=== PATIENT | female | born 1940 | race Caucasian/White ===

== ENCOUNTER 2024-04-17 14:57 | Outpatient (REF) | payer OTHER, SELFPAY ==
[2024-04-17 17:31] LABS: Vitamin B12 290 pg/mL (200-900)
== END 2024-04-17 14:58 | disposition home or self-care (01) ==
LOC: HO.LAB 14:57
PROVIDERS: Visit Provider Psychiatry & Neurology Neurology
DX: G30.9 Alzheimer's disease, unspecified (principal)
CPT/HCPCS: 36415; 82607

== ENCOUNTER 2024-12-24 13:53 | Outpatient (AMB) | payer OTHER, SELFPAY ==
--- NOTE | 2024-12-24 13:58 | MHC.OFFVIS ---
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 Her head CT revealed moderate atrophy mostly pronounced in temporal lobes. She is presenting for follow-up care related to Alzheimer's Disease. Her current sleep pattern indicates she sleeps most of the day and continues to sleep throughout the night, though waking and occasional agitation occur. Mood stability is described as satisfactory, and there have been no sightings of hallucinations. Donepezil is prescribed for symptom control and cognitive support. Clonazepam was recently given on a temporary basis for travel purposes. The patient requires kuzgi-scm-lrbby caregiving from her daughter and uses incontinence products as a part of daily management. Her condition is considered stable with the current medication and support structure in place. No new or progressive cognitive issues have been reported. Review of Systems Const Details: - Neurological: Reports occasional sleep disturbances; Denies hallucinations. - Psychological: Reports stable mood; Denies severe agitation. - Genitourinary: Reports diaper use for incontinence. Physical Exam Neuro Other: She is alert and awake mostly quite not anxious. Face is symmetrical. Visual lyons are full. No obvious focal arm or leg weakness. Assessment & Plan Assessment & Plan (1) Alzheimer dementia: Code(s): G30.9 - Alzheimer's disease, unspecified; F02.80 - Dementia in other diseases classified elsewhere, unspecified severity, without behavioral disturbance, psychotic disturbance, mood disturbance, and anxiety Category: Medical Plan Impression: Moderate dementia probably of Alzheimer type Recommendations: 1. Donepezil 10 mg daily 2. Sertraline 25 mg daily Medications: New donepezil 10 mg PO BEDTIME 90 tabs 1RF 90 days Refilled sertraline 25 mg PO DAILY 90 tabs 1RF Coding Level of Care Code Est Pt Level 4 (10179) Diagnoses Alzheimer dementia G30.9; F02.80
--- OUTSIDE RECORDS SUMMARY | 2024-12-24 16:16 | XMS_ITS | Encounter Summary ---
Author Organization [facility] Address [address] [place] [address] Care Team Providers Care Casting Room Operator Name Role Phone Macey Rivera BRIDGE MECHANIC Primary Care Provider [phone] Encounter Details Date Type Department Care Team ([facility] st Contact Info) Description 12/19/2024 Results Follow-Up [facility] Main [address] [place] [id number] Macey Rivera NP [address] [place] [address] Social History Tobacco Use Types Packs/Day Years Used Date Smoking Tobacco: Former Cigarettes Smokeless Tobacco: Never Comments:Stopped smoking abo ut 3 weeks ago Alcohol Use Standard Drinks/Week Comments Not Currently 0 (1 standard drink = 0.6 oz pur e alcohol) Social Connections Answer Date Recorded Connectedness 0 01/18/2024 Financial Resource Strain Answer Date R ecorded Financial Resource Strain 0 2023 Stress Answer Date Recorded Stress 0 01/18/2024 Physical Activity Answer Date Recorded Physical Activity 0 01/18/2024 Food Insecurity Answer Date Recorded Food 0 01/18/2024 Transportation Needs Answer Date Record ed Transportation 0 01/18/2024 Housing Stability Answer Date Recorded Housing 0 01/18/2024 Safety and Environment Answer Date Sachin rded Safety 0 01/18/2024 Utilities Answer Date Recorded Utilities 0 01/18/2024 Employment Answer Date Recorded Stress 0 01/18/2024 Comments No Sex and Gender Information Value Date Recorded Sex Assigned at Female 01/27/2024 10:10 AM PDT Legal Sex Female 6:24 AM PDT Gender Identity Female 01/27/2024 10:10 AM PDT Sexual Orientation Straight 01/27/2024 10 :10 AM PDT documented as of this encounter Plan of Treatment Upcoming Encounters Date Type Department Care Team (Late st Contact Info) Description 02/01/2025 3:00 PM EDT Office Visit [facility] Main [address] [place] [address] Macey Rivera NP [address] [place] [address] documented as of this encounter Visit Diagnoses Not on filedocumented in this encounter Additional Health Concerns Assessment Noted Time PHQ-9 Depression Total Score: 6 10/30/19 25 1:45 PM PDT A Depression follow-up plan has been documented for the patient 10/29/2024 4:05 PM PDT documented as of this encounter Care Teams Casting Room Operator Relationship Specialty Start Date End Date Macey Rivera NP [address] [place] [address] PCP - General Family Medicine, BRIDGE MECHANIC 02/22/24 documented as of this encounter
--- OUTSIDE RECORDS SUMMARY | 2024-12-24 16:16 | XMS_ITS | Clinical Summary ---
Author Organization [facility] Address [address] [place] [address] Care Team Providers Care Truck Driving Name Role Phone Macey Rivera RONNIE Primary Care Provider Source Comments PLEASE NOTE, if this patient is a minor, it may be UNLAWFUL to discuss sensitive information that is contained in these records (such as FAMILY PLANNING, MENTAL HEALTH or SUBSTANCE ABUSE) with the minor patient's parent or other person without the patient's specific authorization.[facility] Allergies No known active allergies Medications aspirin (ECOTRIN LOW STRENGTH) [address] tabletIndications :Coronary artery disease without angina pectoris, unspecified vessel or lesion type, unspecified whether campo or transplanted heart Take 1 Tablet by mouth once daily 90 Tablet 1 024 Active MISCELLANEOUS MEDICAL SUPPLY MISCIndications:M ild dementia, unspecified dementia type, unspecified whether behavioral, psychotic, or mood disturbance or anxiety ([facility]) by miscellaneous route daily Please dispense 1 grab bar for lifetime use for hx of dementia 1 Each 024 Active MISCELLANEOUS MEDICAL SUPPLY MISCIndications:M ild dementia, unspecified dementia type, unspecified whether behavioral, psychotic, or mood disturbance or anxiety ([facility]) by miscellaneous route daily Please dispense 1 shower chair for lifetime X99 years 1 Each 024 Active MISCELLANEOUS MEDICAL SUPPLY MISCIndications:M ild dementia, unspecified dementia type, unspecified whether behavioral, psychotic, or mood disturbance or anxiety ([facility]) by miscellaneous route once daily as needed (mixed incontinence & dementia) L adult pull ups for mixed incontinence, 8 per day for 30 days per month, use 99 years 240 Each 024 Active MISCELLANEOUS MEDICAL SUPPLY MISCIndications:M ild dementia, unspecified dementia type, unspecified whether behavioral, psychotic, or mood disturbance or anxiety ([facility]) by miscellaneous route daily. Please dispense 1 portable commode for lifetime use. Dx: dementia 1 Each 024 Active blood pressure monitorIndication s:Hypertension, unspecified type Dispense one automated BP monitor, to be used daily and prn, length of need 99 years 1 Kit 1 024 Active diclofenac sodium (VOLTAREN) 1 % gelIndications:Bi lateral low back pain without sciatica, unspecified chronicity Apply topically 2 (two) times daily 100 g 2 025 Active atorvastatin (LIPITOR) 40 mg tabletIndications :Hyperlipidemia, unspecified hyperlipidemia type TAKE 1 TABLET BY MOUTH EVERY NIGHT AT BEDTIME 90 Tablet 1 025 Active donepeziL (ARICEPT) 10 mg tabletIndications :Mild dementia, unspecified dementia type, unspecified whether behavioral, psychotic, or mood disturbance or anxiety ([facility]) TAKE 1 TABLET BY MOUTH EVERY NIGHT AT BEDTIME 90 Tablet 1 025 Active irbesartan (AVAPRO) 300 mg tabletIndications :Hypertension, unspecified type TAKE 1 TABLET BY MOUTH DAILY 90 Tablet 1 025 Active empagliflozin (JARDIANCE) 10 mg tab Take 10 mg by mouth once daily. Active sertraline (ZOLOFT) 25 mg tabletIndications :Mild dementia with agitation, unspecified dementia type ([facility]) Take 1 Tablet by mouth once daily. 30 Tablet 2 025 Active MISCELLANEOUS MEDICAL SUPPLY MISCIndications:U nsteady gait,Mild episode of recurrent major depressive disorder ([facility] V24) by miscellaneous route daily Please dispense 1 wheelchair with a seat for lifetime use, dx: gait instability. 1 Each 025 Active famotidine (PEPCID) 20 mg tablet Take 1 Tablet by mouth daily. 90 Tablet 1 025 Active alendronate (FOSAMAX) 70 mg tabletIndications :Age-related osteoporosis without current pathological fracture TAKE 1 TABLET BY MOUTH EVERY 7 DAYS 12 Tablet 3 025 Active famotidine (PEPCID) 20 mg tablet Take 1 Tablet by mouth daily. 90 Tablet 1 024 2024 Discontinued(R eorder (E-Cancel Not Sent)) alendronate (FOSAMAX) 70 mg tabletIndications :Age-related osteoporosis without current pathological fracture TAKE 1 TABLET BY MOUTH EVERY 7 DAYS 12 Tablet 3 025 2024 Discontinued Active Problems Problem Noted Date Diagnosed Date Mild episode of recurrent ma zarina depressive disorder [place] [place] 10/29/2024 Stage 3b chronic kidney disease ([facility]) 01/31/2024 Overview (10/29/2024): 10/13/24 [facility] Tristen Nye MD Plan - continue irbesartan for proteinuria - Cont Jardiance 10 mg QD - Avoid the use of Motrin, Aleve, or ibuprofen to prevent further kidney damage. - Increase fluid intake, including water and cranberry juice - Monitor blood pressure at home using a blood pressure machine. Record readings in a diary and bring them to the next visit for review. Changes to blood pressure medication will be made once consistent readings are available. -Consider referral to Endocrine for 24 hr urine calcium and DEXA scan, not a candidate for surgery, will likely benefit from sensipar as she has CKD. PHPT can contribute to progressive kidney function through direct effects on the kidney and hypercalemia induced nephrocalcinosis and nephrolithiasis. Return in 3 months 07/12/24: [facility] Tristen Nye MD Assessment & Plan 1. Stage 3b chronic kidney disease (HCC) 2. Persistent proteinuria 3. Primary hyperparathyroidism (HCC) - CKD Stage 3a/b, stable Scr 1.2, GFR 45 as of 07/04/24, with normal lytes - K borderline high at 5.1, Bicarb WNL 23 - Kidneys with increased echogenecity noted on prior ultrasound, consistent with CKD. 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 - Unclear etiology of reported gel-like substance in urine; further confirmation required. - Hypertension with elevated systolic readings, requiring monitoring. - Early-stage dementia. - Ca improved to WNL 9.6 from 10.4 with elevated PTH of 129 - likely primary hyperparathyroidism, normal VitD 25 level. Plan - continue irbesartan for proteinuria - Avoid the use of Motrin, Aleve, or ibuprofen to prevent further kidney damage. - Maintain proper perineal hygiene to reduce the risk of urinary infections. Assistance may be needed to ensure thorough cleaning after bowel or urinary movements. - Increase fluid intake, including water and cranberry juice, to support urinary health. - Monitor blood pressure at home using a blood pressure machine. Record readings in a diary and bring them to the next visit for review. No changes to blood pressure medication will be made until consistent readings are available. - If the gel-like substance in the urine is confirmed as originating from the urinary tract, consider a referral to a urologist to evaluate for potential bladder blockage or other issues. -Consider referral to Endocrine if hypercalcemia/pth worsens -Start Jardiance 10 mg QD -Repeat Renal panel, UPCR/UACR and UA, UC to screen for UTI in 4 weeks Orders Placed This Encounter Urinalysis with microscopic Urine Albumin / Creatinine Ratio Urine Protein / creatinine ratio Renal function panel Urine culture Jardiance 10 MG tablet Return in about 3 months (around 10/12/2024) for Next scheduled follow-up with Dr. Peter. RE: 04/13/24 [facility] Tristen Nye MD : f/u in 3 months Assessment & Plan 1. Stage 3b chronic kidney disease (HCC) - Chronic kidney disease (CKD) stage 3B, BL cr 1.05 with an eGFR of 53,- labs today. consistent with prior findings from - Kidneys with increased echogenecity noted on prior ultrasound, consistent with CKD. - CKD likley secondary to ischemic renal dz, nsaid use, residual loss of renal fucntion - has proteinuria of 1gm with macr 500mg. Ua bland no rbc, no h/o dm - No evidence of anemia - No current evidence of urinary tract infection or fever. - Unclear etiology of reported gel-like substance in urine; further confirmation required. - Hypertension with elevated systolic readings, requiring monitoring. - Early-stage dementia. - Calcium 10.4 with pth 100 consistent with primary hyperparathyroidism Plan - continue irbesartan for proteinuria - will consider sglt2i once ascertain uti risk - Avoid the use of Motrin, Aleve, or ibuprofen to prevent further kidney damage. - Maintain proper perineal hygiene to reduce the risk of urinary infections. Assistance may be needed to ensure thorough cleaning after bowel or urinary movements. - Increase fluid intake, including water and cranberry juice, to support urinary health. - Monitor blood pressure at home using a blood pressure machine. Record readings in a diary and bring them to the next visit for review. No changes to blood pressure medication will be made until consistent readings are available. - If the gel-like substance in the urine is confirmed as originating from the urinary tract, consider a referral to a urologist to evaluate for potential bladder blockage or other issues. - she is not symptomatic from the hypercalcemia, if it worsens, will consider referral to endocrine surgery 02/22/24: KUB: Increased echogenicity of the renal cortices consistent with intrinsic renal disease. No hydronephrosis bilaterally. No bladder masses or stones are identified. Hyperlipidemia 01/27/2024 Coronary artery disease without angina pectoris 01/27/2024 Overview (03/27/2024): 03/23/24:[facility] Kory Guzmán: Continue Asprin & atorvastin daily. Will check ECHO and follow up in 6 months 2013: underwent 2 vessel bypass Age-related osteoporosis wit hout current pathological fracture 01/27/2024 Overview (01/27/2024): Bone scan 09/27/23- L femoral neck, L total forearm, 1/3 forearm (L) with osteoporosis AP spine, UD forearm left with osteopenia. Hypertension 01/27/2024 Moderate dementia (CMS & HHS-HCC) 01/27/2024 Overview (04/24/2024): 04/17/24: [facility] with Filipe Smith MD: Plan continue donsepril 10mg at HS, start sertraline 25mg daily, get labs B12 & MRI. Follow up after MRI Type 2 diabetes mellitus wit h other specified complication ([facility]) 01/27/2024 GERD (gastroesophageal reflux disease) Encounters Date Type Department Care Team Description 12/19/2024 Results Follow-Up [address] [phone] Macey Rivera NP 12/11/2024 10:20 AM EDT Office Visit [address] [phone] Macey Rivera NP 10/29/2024 2:00 PM EDT Office Visit [address] [phone] Macey Rivera NP Zayas, Juan from Last 3 Months Immunizations Immunization Administration Dates Next Due Influenza (FLUZONE), high-dose, trivalent, PF PNEUMOCOCCAL CONJUGATE PCV 20 (Prevnar 20) 05/30 Pfizer COVID-19 (Comirnaty), Mrna, Lnp-s, Pf, Candelario-sucrose, 30 Mcg/0.3 Ml, 12yr+ 01/27/2024 TDAP 10/29/2024 ZOSTER VACCINE, RECOMBINANT (SHINGRIX) ,05/30/2024 Family History Medical History Relation Name Comments Diabetes Daughter 1 Hypertension Daughter 1 Coronary Artery Disease Daughter 2 Diabetes Daughter 2 Hypertension Daughter 2 Stroke Father Stroke Mother Kidney disease Son 1 Relation Name Status Comments Daughter 1 Daughter 2 Alive Father Maternal Grandmother Mother Son 1 Alive Son 2 Alive Son 3 Alive Son 4 Alive Son 5 Alive Son 6 Alive Social History Tobacco Use Types Packs/Day Years Used Date Smoking Tobacco: Former Cigarettes Smokeless Tobacco: Never Tobacco Cessation:Counseling Given: Not Answered Comments:Stopped smoking about 3 weeks ago Alcohol Use Standard Drinks/Week [...] Orientation Straight 01/27/2024 10 :10 AM PDT Last Filed Vital Signs Vital Sign Reading Time Taken Comments Blood Pressure 140/60 12/11/2024 10:15 AM EDT Pulse 65 12/11/2024 10:15 AM EDT Temperature 36.6 C (97.9 F) 12/11/2024 10:15 AM EDT Respiratory Rate 16 12/11/2024 10:15 AM EDT Oxygen Saturation 99% 12/11/2024 10:15 AM EDT Inhaled Oxygen Concentration - - Weight 53.1 kg (117 lb) 12/11/2024 10:15 AM EDT Height 152.4 cm (5') 12/11/2024 10:15 AM EDT Body Mass Index 22.85 12/11/2024 10:15 AM EDT Plan of Treatment Upcoming Encounters Date Type Department Care Team (Late st Contact Info) Description 02/01/2025 3:00 PM EDT Office Visit [facility] [address] [place] [phone] Macey Rivera NP [address] [place] [address] Health Maintenance Due Date Last Done Comments Dental Examination 1940 Diabetes Foot Exam 1940 Advanced Care Planning 1940 Retinopathy Screening 1953 Medicare Annual Wellness Visit 1958 Imm-RSV (adult) (1 - 1-dose 75+ series) 2015 [id number]-[id number]-12 (2 season) 2024 024 Imm-Influenza (#1) 2024 01/27/2024 Lipid Screening 01/26/2025 01/27/2024 Depression Monitoring 01/29/2025 10/29/2024, 025 Falls Prevention 05/30/2025 05/30/2024 Hemoglobin A1c 06/13/2025 12/11/2024, 03/12/2024, 07/04/2024, Additional history exists Serum Creatinine 08/06/2025 08/06/2024, , 04/13/2024, Additional history exists Tobacco Screening 12/11/2025 12/11/2024 Urine Albumin Creatinine Rat io Screening 12/11/2025 12/11/2024, 10/23/2024, 08/06/2024, Additional history exists Imm-DTaP/Tdap/Td (2 - Td or Tdap) 10/29/2034 025 Bone Density Screening Completed 09/27/2023 Alcohol and Drug Screen Completed 05/30/2024, 01/26 Imm-Pneumococcal 50+ Completed 05/30/2024 Imm-Zoster, Recombinant Completed 12/11/2024, 05/30 Procedures Procedure Name Priority Date/Time Associated Diagnosis Comments OTHER ORDERS SCANNED DOCUMENT 12/14/2024 3:00 AM EDT PTH, INTACT AND CALCIUM Routine 12/11/2024 11:55 AM EDT MICROALBUMIN/CREATININ E RATIO, URINE, RANDOM Routine 12/11/2024 11:55 AM EDT Type 2 diabetes mellitus with other specified complication, without long-term current use of insulin ([facility]) HEMOGLOBIN GLYCOSYLATED A1C Routine 12/11/2024 11:55 AM EDT Type 2 diabetes mellitus with other specified complication, without long-term current use of insulin ([facility]) OTHER ORDERS SCANNED DOCUMENT 12/04/2024 3:00 AM EDT REFERRAL SCANNED DOCUMENT 11/23/2024 3:00 AM EDT OTHER ORDERS SCANNED DOCUMENT 11/14/2024 3:00 AM EDT OTHER ORDERS SCANNED DOCUMENT 10/31/2024 3:00 AM EDT OTHER ORDERS SCANNED DOCUMENT 10/30/2024 3:00 AM EDT OTHER ORDERS SCANNED DOCUMENT 10/03/2024 3:00 AM EDT IMAGING SCANNED DOCUMENT 09/27/2024 3:00 AM EDT COMPREHENSIVE METABOLIC PANEL Routine 01/27/2024 2:34 PM EDT Routine adult health maintenance LIPID PANEL Routine 01/27/2024 2:34 PM EDT Routine adult health maintenance HISTORIC DEXA SCAN 09/27/2023 3: 00 AM EDT from Last 3 Months or Most Recently Relevant to Health Maintenance Results * OTHER ORDERS SCANNED DOCUMENT (12/14/2024 3:00 AM EDT) Only the most recent of6 resultswithin the time period is included. 12/14/2024 3:00 AM EDT Davisdarby Miguel STABLE HELPER SCAN OTHER ORDERS Final Result * (ABNORMAL) MICROALBUMIN/CREATININE RATIO, URINE, RANDOM Urine Routine (12/11/2024 11:55 AM EDT) CREATININE, RANDOM URINE 68 20 - 275 mg/dL 12/13/2024 8:52 PM EDT [facility] MICROALBUMIN 60.4 mg/dL 12/13/2024 8:52 PM EDT [facility] MICROALBUMIN/CRE ATININE RATIO, RANDOM URINE 888(H) <30 mg/g creat 12/13/2024 8:52 PM EDT [facility] Urine Urine specimen / Unknown 12/11/2024 11:55 AM EDT 12/12/2024 8:36 AM EDT Narrative [facility] - 12/13/2024 8:54 PM EDT FASTING:UNKNOWN Verified by repeat analysis. . Reference Range Not established . The ADA defines abnormalities in albumin excretion as follows: . Albuminuria Category Result (mg/g creatinine) . Normal to Mildly increased <30 Moderately increased 30-299 Severely increased > OR = 300 . The ADA recommends that at least two of three specimens collected within a 3-6 month period be abnormal before considering a patient to be within a diagnostic category. us Macey Rivera STABLE HELPER LAB URINE AMBULATORY Final Resu lt Performing Organization Address [facility]/ZIP Co de Phone Number [facility] [address] [address], [employer] [address] [phone] * (ABNORMAL) PTH, INTACT AND CALCIUM Routine (12/11/2024 11:55 AM EDT) PARATHYROID HORMONE, INTACT 173(H) 16 - 77 pg/mL 12/12/2024 6:58 AM EDT [facility] CALCIUM 9.9 8.6 - 10.4 mg/dL 12/12/2024 9:02 AM EDT [employer] 12/11/2024 11:5 5 AM EDT 12/12/2024 4:07 AM EDT Narrative [facility] - 12/12/2024 9:10 AM EDT FASTING:UNKNOWN . Interpretive Guide Intact PTH Calcium ------- Normal Parathyroid Normal Normal Hypoparathyroidism Low or Low Normal Low Hyperparathyroidism Primary Normal or High High Secondary High Normal or Low Tertiary High High Non-Parathyroid Hypercalcemia Low or Low Normal High . us Macey Rivera STABLE HELPER LAB - BLOOD DRAW Final Result Performing Organization Address City/[facility]/ZIP Co de Phone Number [facility] [address] [address], [employer] [address] [address] * HEMOGLOBIN GLYCOSYLATED A1C Routine (12/11/2024 11:55 AM EDT) HEMOGLOBIN A1C 5.2 <5.7 % 12/12/2024 7:21 AM EDT [employer] Blood Blood / Unknown 12/11/2024 1 1:55 AM EDT 12/12/2024 4:30 AM EDT Narrative [facility] - 12/12/2024 7:29 AM EDT FASTING:UNKNOWN For the purpose of screening for the presence of diabetes: . <5.7% Consistent with the absence of diabetes 5.7-6.4% Consistent with increased risk for diabetes (prediabetes) > or =6.5% Consistent with diabetes . This assay result is consistent with a decreased risk of diabetes. . Currently, no consensus exists regarding use of hemoglobin A1c for diagnosis of diabetes in children. . According to [place] Diabetes Association (ADA) guidelines, hemoglobin A1c <7.0% represents optimal control in non- diabetic patients. Different metrics may apply to specific patient populations. Standards of Medical Care in Diabetes(ADA). . Macey Rivera NP LAB - BLOOD DRAW Final Result [facility] [address] [address], [facility] [address] [phone] * REFERRAL SCANNED DOCUMENT (11/23/2024 3:00 AM EDT) 11/23/2024 3:00 AM EDT Ashley Brooks PA-C SCAN REFERRAL Final Result * IMAGING SCANNED DOCUMENT (09/27/2024 3:00 AM EDT) 09/27/2024 3:00 AM EDT Melissa DYERP SCAN IMAGING Final Res ult * LIPID PANEL (01/27/2024 2:34 PM EDT) CHOLESTEROL, TOTAL 113 <200 mg/dL [facility] HDL CHOLESTEROL 51 > OR = 50 mg/dL [facility] TRIGLYCERIDES 84 <150 mg/dL [facility] LDL-CHOLESTEROL 46 99 mg/dL (calc) [facility] Comment: Reference range: <100 Desirable range <100 mg/dL for primary prevention; <70 mg/dL for patients with CHD or diabetic patients with > or = 2 CHD risk factors. LDL-C is now calculated using the Yvonne calculation, which is a validated novel method providing better accuracy than the Friedewald equation in the estimation of LDL-C. Raheem CASTANEDA et al. VALENCIA. 2013;310(19): 8129-9977 (http://education.[employer]/faq/NII420) CHOL/HDLC RATIO 2.2 <5.0 (calc) [facility] NON-HDL CHOLESTEROL 62 <130 mg/dL (calc) [facility] Comment: For patients with diabetes plus 1 major ASCVD risk factor, treating to a non-HDL-C goal of <100 mg/dL (LDL-C of <70 mg/dL) is considered a therapeutic option. Blood Blood / Unknown 01/27/2024 2 :34 PM EDT 01/27/2024 2:35 PM EDT Macey Rivera NP LAB - BLOOD DRAW Final Result [facility] [address] [place] [id number], [facility] [address] [phone] * (ABNORMAL) COMPREHENSIVE METABOLIC PANEL (01/27/2024 2:34 PM EDT) GLUCOSE 139(H) 65 - 99 mg/dL [facility] Comment: Fasting reference interval For someone without known diabetes, a glucose value >125 mg/dL indicates that they may have diabetes and this should be confirmed with a follow-up test. UREA NITROGEN (BUN) 35(H) 7 - 25 mg/dL [facility] CREATININE (blood) 1.22(H) 0.60 - 0.95 mg/dL [employer] EGFR 44(L) > OR = 60 mL/min/1. 73m2 [facility] BUN/CREATININE RATIO 29(H) 6 - 22 (calc) [facility] SODIUM 140 135 - 146 mmol/L [facility] POTASSIUM 4.1 3.5 - 5.3 mmol/L [facility] CHLORIDE 103 98 - 110 mmol/L [facility] CARBON DIOXIDE 27 20 - 32 mmol/L [employer] [facility] CALCIUM 9.5 8.6 - 10.4 mg/dL [facility] PROTEIN, TOTAL 6.5 6.1 - 8.1 g/dL [facility] ALBUMIN 3.9 3.6 - 5.1 g/dL [facility] [place] [facility] GLOBULIN 2.6 1.9 - 3.7 g/dL (calc) [facility] ALBUMIN/GLOBULI N RATIO 1.5 1.0 - 2.5 (calc) [facility] BILIRUBIN, TOTAL 0.5 0.2 - 1.2 mg/dL [facility] ALKALINE PHOSPHATASE 77 37 - 153 U/L [facility] AST 20 10 - 35 U/L [facility] ALT 19 6 - 29 U/L [facility] Blood Blood / Unknown 01/27/2024 2 :34 PM EDT 01/27/2024 2:35 PM EDT Macey Rivera NP LAB - BLOOD DRAW Edited Result - Final [facility] [address] [address], [facility] [address] [address] * HISTORIC DEXA SCAN (09/27/2023 3:00 AM EDT) 09/27/2023 3:00 AM EDT Melissa Fajardo [employer] IMG DXA Final Res ult from Last 3 Months or Most Recently Relevant to Health Maintenance Insurance [facility] [place] [id number] Care Teams Truck Driving Relationship Specialty Start Date End Date Macey Rivera NP [address] [place] [address] PCP - General Family Medicine, RONNIE 02/22/24
--- OUTSIDE RECORDS SUMMARY | 2024-12-24 16:16 | XMS_ITS | Clinical Summary ---
Author Organization [facility] Address [address] [facility] [address] [place] [phone] Phone Care Team Providers Care Patient Registration Specialist Name Role Phone Pcp, Unknown Primary Care Provider Unavailabl e Social History Tobacco Use Types Packs/Day Years Used Date Smoking Tobacco: Never Assessed Education Answer Date Recorded Are you interested in more education? Not on nubia e 03/22/2024 Are you concerned about learning? Not on file 03/22/2024 No 03/22/2024 No 03/22/2024 Digital Access Answer Date Recorded No 03/22/2024 No 03/22/2024 Reliable internet access at home? Not on file 03/22/2024 Device with a working camera? Not on file Comments Unknown Sex and Gender Information Value Date Recorded Sex Assigned at Not on file Legal Sex Female 3:24 PM EST Gender Identity Not on file Sexual Orientation Not on file Plan of Treatment Upcoming Encounters Date Type Department Care Team (Late st Contact Info) Description 01/04/2025 1:30 PM EDT Office Visit [facility] [address] [place] [address] [place] [address] Daniel Díaz DO [address] [facility], [address] [place] [address] [email or web address] Yomaira Hunter [address] [place] [address] [email or web address] Health Maintenance Due Date Last Done Comments Adult Td,Tdap Booster 1940 DEPRESSION SCREENING 1952 PNEUMOCOCCAL VACCINES (50+ y ears) (1 of 1 - PCV) 1990 ZOSTER VACCINES (1 of 2) 1990 OSTEOPOROSIS SCREENING INITI AL (ONE-TIME) 2005 RSV VACCINE (1 - 1-dose 75+ series) 2015 INFLUENZA VACCINE (#1) 2024 COVID-19 VACCINE (1 - 2023-2 5 season) 2024 HEPATITIS A VACCINES Aged Out No long er eligible based on patient's age to complete this topic HIB VACCINES Aged Out No longer eligi ble based on patient's age to complete this topic MENINGOCOCCAL VACCINES (ACWY) Aged Out No longer eligible based on patient's age to complete this topic MENINGOCOCCAL VACCINES (B) Aged Out N o longer eligible based on patient's age to complete this topic Medical Devices Not on file Insurance [facility] MEDICARE PART A & B [facility] MEDIC[facility] REPLACEMENT [facility] B [facility] MEDIC[facility]PLACEMENT [facility] B [facility] MEDICARE REPLACEMENT [facility] MEDICARE PART A & [facility] RE[facility] MEDIC[facility] PART A & B [facility] MEDICARE REPLACEMENT [facility] MEDICARE PART A & B Member Subscriber Plan / Payer (Ef fective 1993-Present) Name:Alycia Qureshi Member ID:[id number] Relation to Subscriber:Self Name:Alycia Qureshi Subscriber ID:[id number] Payer ID:[id number] Group ID:Not on file Type:Medicare Address: [facility] [employer] [facility] [facility] [address] [facility] [place] [address] [facility] SCO MEDICARE REPLACEMENT Care Teams Patient Registration Specialist Relationship Specialty Start Date End Date Pcp, Unknown PCP - General 03/22/24 Additional Source Comments The information contained in this document represents components of the legal health record. It is not the complete legal health record.[facility]
--- OUTSIDE RECORDS SUMMARY | 2024-12-24 16:16 | XMS_ITS | Clinical Summary ---
Author Organization [facility] Address [address] [place] [phone] Phone Care Team Providers Care Recruiting Administrator Name Role Phone Melissa Malin NP Primary Care Provider Yaneth vailable Allergies No known active allergies Medications alendronate (FOSAMAX) 70 MG tablet take 1 tablet by mouth every 7 days Active aspirin (ST RENATO) 81 MG EC tablet Take 81 mg by mouth in the morning. 01/27/2024 Active atorvastatin (LIPITOR) 40 MG tablet Take 1 tablet by mouth every night 01/27/2024 Active donepezil (ARICEPT) 10 MG tablet Take 1 tablet by mouth every night 01/27/2024 Active famotidine (PEPCID) 20 MG tablet Take 20 mg by mouth in the morning. 01/27/2024 Active irbesartan (AVAPRO) 300 MG tablet Take 300 mg by mouth in the morning. 01/27/2024 Active Jardiance 10 MG tabletIndication s:Stage 3b chronic kidney disease (HCC),Persistent proteinuria Take 10 mg by mouth 1 (one) time each day in the morning 30 tablet 11 07/12/2024 07/13/19 26 Active Active Problems Problem Noted Date Diagnosed Date Secondary hyperparathyroidism of renal origin Primary hyperparathyroidism 07/13/2024 Persistent proteinuria 07/12/2024 Gastroesophageal reflux disease 04/13/2024 Stage 3b chronic kidney disease 01/31/2024 Overview (04/13/2024): 02/22/24: [facility]: Increased echogenicity of the renal cortices consistent with intrinsic renal disease. No hydronephrosis bilaterally. No bladder masses or stones are identified. Coronary arteriosclerosis 01/27/2024 Overview (04/13/2024): 03/23/24:[facility] Kory Guzmán: Continue Asprin & atorvastin daily. 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 Encounters Date Type Department Care Team Description 10/12/2024 11:45 AM EDT Office Visit [facility] [address] [phone] Tristen Nye MD Stage 3b chronic kidney disease (HCC) (Primary Dx); Persistent proteinuria; Primary hyperparathyroidism (HCC) from Last 3 Months Immunizations Immunization Administration Dates Next Due Influenza Split High Dose Preservative Free IM 1 Social History Tobacco Use Types Packs/Day Years Used Date Smoking Tobacco: Never Assessed Comments Unknown Sex and Gender Information Value Date Recorded Sex Assigned at Not on file Legal Sex Female 8:56 AM EDT Gender Identity Not on file Sexual Orientation Not on file Last Filed Vital Signs Vital Sign Reading Time Taken Comments Blood Pressure 162/60 10/12/2024 11:56 AM EDT Pulse 84 07/12/2024 11:11 AM EDT Temperature - - Respiratory Rate - - Oxygen Saturation 98% 07/12/2024 11:11 AM EDT Inhaled Oxygen Concentration - - Weight 53.5 kg (118 lb) 10/12/2024 11:56 AM EDT Height - - Body Mass Index - - Plan of Treatment Upcoming Encounters Date Type Department Care Team (Latest Contact Info) Description 01/12/2025 Orders Only [facility] [address] [phone] Tristen Nye MD [address] [phone] Stage 3b chronic kidney disease (HCC); Persistent proteinuria; Primary hyperparathyroidism (HCC) 01/21/2025 11:15 AM EDT Office Visit [facility] [address] [phone] Tristen Nye MD [address] [phone] Health Maintenance Due Date Last Done Comments Pneumococcal Vaccine: 50+ Years (1 of 2 - PCV) 1959 Diabetes: Ophthalmology Exam 02/14/2024 Diabetes: Pedal Pulse Checked 02/14/2024 Diabetes: Sensory Foot Exam 02/14/2024 Diabetes: Visual Foot Exam 02/14/2024 Influenza Vaccine (#1) 2024 01/27/2024 Diabetes: Hemoglobin A1C 03/13/2025 025, 07/04/2024, 01/27/2024 Hepatitis B Vaccine Aged Out No longe r eligible based on patient's age to complete this topic Procedures Procedure Name Priority Date/Time Associated Diagnosis Comments URINE ALBUMIN / CREATININE RATIO Routine 10/23/2024 9:10 AM EDT Stage 3b chronic kidney disease (HCC) Persistent proteinuria Primary hyperparathyroidism (HCC) PROTEIN / CREATININE RATIO, URINE Routine 10/23/2024 9:10 AM EDT Stage 3b chronic kidney disease (HCC) Persistent proteinuria Primary hyperparathyroidism (HCC) URINALYSIS WITH MICROSCOPIC Routine 10/23/2024 9:10 AM EDT Stage 3b chronic kidney disease (HCC) Persistent proteinuria Primary hyperparathyroidism (HCC) MICROSCOPIC EXAMINATION - DO NOT USE Routine 10/23/2024 9:10 AM EDT HEMOGLOBIN A1C Routine 07/04/2024 10:44 AM EDT from Last 3 Months or Most Recently Relevant to Health Maintenance Results * (ABNORMAL) Microscopic Examination (10/23/2024 9:10 AM EDT) WBC, Urine >30(A) 0 - 5 /hpf [facility] RBC, Urine 3-10(A) 0 - 2 /hpf [facility] Squamous Epithelial, Urine None seen 0 - 10 /hpf [facility] Casts None seen None seen /lpf [facility] Bacteria, Urine Many(A) None seen/Few [facility] 10/23/2024 9:10 AM EDT 10/23/2024 Tristen Nye MD LAB MICROBIOLOGY - GE NERAL ORDERABLES Final Result Performing Organization Address City/[facility] Co de Phone Number [facility] [address] [place] [address] * (ABNORMAL) Protein, Total, Random Urine w/Creatinine (Protein/Creat Ratio) (10/23/2024 9:10 AM EDT) Creatinine, Ur 42.7 Not Estab. mg/dL [facility] Protein, Ur 82.4 Not Estab. mg/dL [facility] Urine Protein/Creati nine Ratio 1,930(H) 0 - 200 mg/g creat [facility] Urine Urine specimen obtained by clean catch procedure / Unknown 10/23/2024 9:10 AM EDT 10/23/2024 Tristen Nye MD LAB URINE ORDERABLES Final Result Performing Organization Address City/[facility]/ZIP Co de Phone Number [facility] [address] [place] [phone] * (ABNORMAL) Urine Albumin / Creatinine Ratio (10/23/2024 9:10 AM EDT) Albumin, Urine 453.1 Not Estab. ug/mL [facility] Comment: Results confirmed on dilution. Albumin/Creatin ine Ratio 1,061(H) 0 - 29 mg/g creat [facility] Comment: Normal: 0 - 29 Moderately increased: 30 - 300 Severely increased: >300 Urine Urine specimen obtained by clean catch procedure / Unknown 10/23/2024 9:10 AM EDT 10/23/2024 us Tristen Nye MD LAB URINE ORDERABLES Final Result [facility] [address] [place] [phone] * (ABNORMAL) Urinalysis with microscopic (10/23/2024 9:10 AM EDT) Specific [place], Urine 1.015 1.005 - 1.030 [facility] [phone] pH Urine 6.0 5.0 - 7.5 [facility] Color, Urine Yellow Yellow [facility] Appearance Urine Cloudy(A) Clear [facility] [phone] WBC Esterase Urine 2+(A) Negative [facility] Protein, Ur 2+(A) Negative/Tra ce [facility] [phone] Glucose, Ur 3+(A) Negative [facility] Ketones, Urine Negative Negative [facility] Blood Urine 3+(A) Negative [facility] [phone] Bilirubin Urine Negative Negative [facility] Urobilinogen Urine 0.2 0.2 - 1.0 mg/dL [facility] Nitrite, Urine Negative Negative [facility] Microscopic Examination See below: [facility] Comment:Microscopic was marty cated and was performed. Urine Urine specimen obtained by clean catch procedure / Unknown 10/23/2024 9:10 AM EDT 10/23/2024 Tristen Nye MD LAB URINE ORDERABLES Final Result [facility] [address] [place] [phone] * Hemoglobin A1c (07/04/2024 10:44 AM EDT) Hemoglobin A1C 5.5 4.8 - 5.6 % [facility] Comment: Prediabetes: 5.7 - 6.4 Diabetes: >6.4 Glycemic control for adults with diabetes: <7.0 07/04/2024 10:4 4 AM EDT 07/04/2024 Tristen Nye MD LAB BLOOD ORDERABLES Final Result Performing Organization Address City/[facility]/ZIP Co de Phone Number [facility] [address] [place] [phone] from Last 3 Months or Most Recently Relevant to Health Maintenance Insurance [employer] [id number] Care Teams Recruiting Administrator Relationship Specialty Start Date End Date Melissa Malin NP [facility] [place] [phone] PCP - General Nurse Practitioner 02/13/24
== END 2024-12-24 14:47 | disposition home or self-care (01) ==
LOC: HO.HSM 13:54
PROVIDERS: Referring Provider Internal Medicine; Visit Provider Psychiatry & Neurology Neurology
DX: G30.9 Alzheimer's disease, unspecified (principal); F02.80 Dementia in other diseases classified elsewhere, unspecified severity, without behavioral disturbance, psychotic disturbance, mood disturbance, and anxiety
CPT/HCPCS: 99214

== ENCOUNTER → 2024-12-24 13:53 | Outpatient (BNVA) | payer OTHER, SELFPAY | PROVIDERS: Referring Provider Internal Medicine; Visit Provider Psychiatry & Neurology Neurology | DX: G30.9 Alzheimer's disease, unspecified (principal); F02.80 Dementia in other diseases classified elsewhere, unspecified severity, without behavioral disturbance, psychotic disturbance, mood disturbance, and anxiety | CPT/HCPCS: 99212 ==